=== PATIENT | male | born 2000 | race Caucasian/White ===

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

== ENCOUNTER 2022-06-23 17:07 | Inpatient (IN) | payer BC, OTHER ==
[2022-06-23] MEDS ORDERED: KETOROLAC 15 MG/ML 1 ML VIAL IVP STA (17:39)
[2022-06-23] MEDS ORDERED: ONDANSETRON 4 MG/2 ML VIAL IVP STA (17:39)
[2022-06-23] MEDS ORDERED: SODIUM CHLORIDE 0.9% 2,000 ML IV STA (17:39)
[2022-06-23] MEDS ORDERED: DEXAMETHASONE SOD PHOSPHATE 10 MG/ML 1 ML VIAL IVP STA (18:20)
--- NOTE | 2022-06-23 18:20 | ED ---
General Adult HPI - General Chief complaint: Skin/Abscess/Foreign Body Stated complaint: abscess Time Seen by Provider: 06/23/22 17:32 Source: patient Mode of arrival: ambulatory Limitations: no limitations - History of Present Illness Initial comments: Patient is a 21-year-old male who presents to the emergency department for possible neck abscess. Patient noticed it 2 days ago and has been increasing in size and tenderness. He does not have history of abscess. It was preceded by right ear pain. Patient reports significant pain when swallowing. He reports numerous episodes of nausea and vomiting today with headache. No fever or chills. He denies drooling, trismus, issues with breathing. No recent sick contacts. Patient presented to urgent care today he was sent to emergency department for evaluation. - Related Data Home Medications Medication Instructions Recorded Confirmed No Known Home Medications 07/07/14 06/23/22 Allergies Allergy/AdvReac Type Severity Reaction Status Date / Time Penicillins Allergy Rash/Hives Verified 06/23/22 17:45 Review of Systems ROS Statement: Those systems with pertinent positive or pertinent negative responses have been documented in the HPI. ROS Other: All systems not noted in ROS Statement are negative. Past Medical History Past Medical History: No Reported History History of Any Multi-Drug Resistant Organisms: None Reported Past Surgical History: Tonsillectomy Past Psychological History: No Psychological Hx Reported Smoking Status: Current every day smoker Past Alcohol Use History: None Reported Past Drug Use History: Marijuana General Exam Limitations: no limitations General appearance: alert, in no apparent distress Head exam: Present: atraumatic, normocephalic, normal inspection Eye exam: Present: normal appearance, PERRL, EOMI. Absent: scleral icterus, conjunctival injection, periorbital swelling ENT exam: Present: normal oropharynx (posterior pharynx and tonsils erythematous with exudate. no significant swelling ). Absent: TM's normal bilaterally (right acute otitis media) Neck exam: Present: tenderness, full ROM, lymphadenopathy, other (erythema with minimal flunctance to right middle neck and submandibular region. no submental or sublingular swelling). Absent: normal inspection, meningismus Respiratory exam: Present: normal lung sounds bilaterally. Absent: respiratory distress, wheezes, rales, rhonchi, stridor Cardiovascular Exam: Present: normal rhythm, tachycardia, normal heart sounds. Absent: regular rate, systolic murmur, diastolic murmur, rubs, gallop, clicks Neurological exam: Present: alert, oriented X3, CN II-XII intact Psychiatric exam: Present: normal affect, normal mood Skin exam: Present: warm, dry, intact, normal color. Absent: rash Course Vital Signs 06/23/22 06/23/22 17:21 18:50 Temperature 98.9 F Pulse Rate 119 H 98 Respiratory 20 18 Rate Blood Pressure 128/85 127/81 O2 Sat by Pulse 99 98 Oximetry Medical Decision Making - Medical Decision Making Was pt. sent in by a medical professional or institution (, PA, [facility], urgent care, hospital, or half-way...) When possible be specific @ -No Did you speak to anyone other than the patient for history (EMS, parent, family, police, friend...)? What history was obtained from this source @ -No Did you review nursing and triage notes (agree or disagree)? Why? @ -I reviewed and agree with nursing and triage notes Were old charts reviewed (outside hosp., previous admission, EMS record, old EKG, old radiological studies, urgent care reports/EKG's, half-way records)? Report findings @ -No old charts were reviewed Differential Diagnosis (chest pain, altered mental status, abdominal pain women, abdominal pain men, vaginal bleeding, weakness, fever, dyspnea, syncope, head ache, dizziness, GI bleed, back pain, seizure, CVA, palpatations, mental health)? @ -abscess, strep throat, cellulitis-this is not an all inclusive list EKG interpreted by me (3pts min.). @ -As above X-rays interpreted by me (1pt min.). @ -None done CT interpreted by me (1pt min.). @ -CT of the neck and chest with contrast shows subcutaneous edema and swelling in the right-sided anterior neck and submandibular region consistent with cellulitis and phlegmon. No drainable fluid collection. No focal boned instruction. Mild cervical lymphadenopathy U/S interpreted by me (1pt. min.). @ -None done What testing was considered but not performed or refused? (CT, X-rays, U/S, labs)? Why? @ -None What meds were considered but not given or refused? Why? @ -None Did you discuss the management of the patient with other professionals (professionals i.e. , PA, [facility], lab, RT, psych nurse, socially responsible investment adviser, rivet maker, teacher, special loan officer, case operator)? Give summary @ -No Was smoking cessation discussed for >3mins.? @ -No Was critical care preformed (if so, how long)? @ -No Were there social determinants of health that impacted care today? How? (Homelessness, low income, unemployed, alcoholism, drug addiction, trans portation, low edu. Level, literacy, decrease access to med. care, shelter, rehab)? @ -No Was there de-escalation of care discussed even if they declined (Discuss DNR or withdrawal of care, Hospice)? DNR status @ -No What co-morbidities impacted this encounter? (DM, HTN, Smoking, COPD, CAD, Cancer, CVA, ARF, Chemo, Hep., AIDS, mental health diagnosis, sleep apnea, morbid obesity)? @ -[None] Was patient admitted / discharged? Hospital course, mention meds given and route, prescriptions, significant lab abnormalities, going to OR and other pertinent info. @ -Patient presenting for possible abscess of his neck.Patient has swelling to the right anterior neck and submandibular region. There is no concern for James angina. Patient has been vomiting he is tachycardic at 119. Afebrile. Blood cultures obtained. IV fluids, antibiotics, pain, nausea medications started. There is leukocytosis at 23.5. There is lactic acidosis at 2.5 likely related to infection. Strep is detected. CT shows cellulitis and phlegmon of the right anterior neck and submandibular region. There is no drainable abscess. Sepsis diagnosis made at 19:29. Case discussed with Heidi Resendiz patient is admitted with ID and ENT on consult. Patient admitted in stable condition. Undiagnosed new problem with uncertain prognosis? @ -[No] Drug Therapy requiring intensive monitoring for toxicity (Heparin, Nitro, Insulin, Cardizem)? @ -[No] Were any procedures done? @ -[No] Diagnosis/symptom? @ -sepsis Acute, or Chronic, or Acute on Chronic? @ acute Uncomplicated (without systemic symptoms) or Complicated (systemic symptoms)? @ -complicated Side effects of treatment? @ -[No] Exacerbation, Progression, or Severe Exacerbation? @ -[No] Poses a threat to life or bodily function? How? (Chest pain, USA, OR, pneumonia, PE, COPD, DKA, ARF, appy, cholecystitis, CVA, Diverticulitis, Homicidal, Suicidal, threat to staff... and all critical care pts) @ -yes Dr. Soria is my attending - Lab Data Result diagrams: 06/23/22 17:55 06/23/22 17:55 Lab Results 06/23/22 06/23/22 06/23/22 Range/Units 17:55 17:55 17:55 WBC 23.5 H (3.8-10.6) k/uL RBC 5.76 (4.30-5.90) m/uL Hgb 17.6 H (13.0-17.5) gm/dL Hct 48.1 (39.0-53.0) % MCV 83.5 (80.0-100.0) fL MCH 30.6 (25.0-35.0) pg MCHC 36.6 (31.0-37.0) g/dL RDW 12.5 (11.5-15.5) % Plt Count 188 (150-450) k/uL MPV 8.7 Neutrophils % 95 % Lymphocytes % 1 % Monocytes % 3 % Eosinophils % 1 % Basophils % 0 % Neutrophils # 22.3 H (1.3-7.7) k/uL Lymphocytes # 0.3 L (1.0-4.8) k/uL Monocytes # 0.6 (0-1.0) k/uL Eosinophils # 0.1 (0-0.7) k/uL Basophils # 0.0 (0-0.2) k/uL Hyperchromasia Slight Sodium 133 L (137-145) mmol/L Potassium 4.0 (3.5-5.1) mmol/L Chloride 91 L (98-107) mmol/L Carbon Dioxide 30 (22-30) mmol/L Anion Gap 12 mmol/L BUN 26 H (9-20) mg/dL Creatinine 1.07 (0.66-1.25) mg/dL Est GFR (CKD-EPI)AfAm >90 (>60 ml/min/1.73 sqM) Est GFR (CKD-EPI)NonAf >90 (>60 ml/min/1.73 sqM) Glucose 149 H (74-99) mg/dL Plasma Lactic Acid Ernesto 2.5 H* (0.7-2.0) mmol/L Calcium 9.5 (8.4-10.2) mg/dL Total Bilirubin 1.0 (0.2-1.3) mg/dL AST 27 (17-59) U/L ALT 23 (4-49) U/L Alkaline Phosphatase 108 (38-126) U/L Total Protein 7.6 (6.3-8.2) g/dL Albumin 4.6 (3.5-5.0) g/dL Group A Strep (PCR) (Not Detectd) 06/23/22 Range/Units 17:55 WBC (3.8-10.6) k/uL RBC (4.30-5.90) m/uL Hgb (13.0-17.5) gm/dL Hct (39.0-53.0) % MCV (80.0-100.0) fL MCH (25.0-35.0) pg MCHC (31.0-37.0) g/dL RDW (11.5-15.5) % Plt Count (150-450) k/uL MPV Neutrophils % % Lymphocytes % % Monocytes % % Eosinophils % % Basophils % % Neutrophils # (1.3-7.7) k/uL Lymphocytes # (1.0-4.8) k/uL Monocytes # (0-1.0) k/uL Eosinophils # (0-0.7) k/uL Basophils # (0-0.2) k/uL Hyperchromasia Sodium (137-145) mmol/L Potassium (3.5-5.1) mmol/L Chloride (98-107) mmol/L Carbon Dioxide (22-30) mmol/L Anion Gap mmol/L BUN (9-20) mg/dL Creatinine (0.66-1.25) mg/dL Est GFR (CKD-EPI)AfAm (>60 ml/min/1.73 sqM) Est GFR (CKD-EPI)NonAf (>60 ml/min/1.73 sqM) Glucose (74-99) mg/dL Plasma Lactic Acid Ernesto (0.7-2.0) mmol/L Calcium (8.4-10.2) mg/dL Total Bilirubin (0.2-1.3) mg/dL AST (17-59) U/L ALT (4-49) U/L Alkaline Phosphatase (38-126) U/L Total Protein (6.3-8.2) g/dL Albumin (3.5-5.0) g/dL Group A Strep (PCR) DETECTED A (Not Detectd) Disposition Clinical Impression: Sepsis, Strep throat, Phlegmonous cellulitis Disposition: ADMITTED IP TO THIS [facility] Condition: Stable
[2022-06-23] MEDS ORDERED: CLINDAMYCIN 600 MG/50 ML-D5W 600 MG in DEXTROSE/WATER 1 50ML.BAG IVPB STA (18:22)
[2022-06-23 18:44] LABS: ALT 23 U/L (4-49); AST 27 U/L (17-59); African American GFR (CKD) >90 (>60 ml/min/1.73 sqM); Albumin 4.6 g/dL (3.5-5.0); Alkaline Phosphatase 108 U/L (38-126); Anion Gap 12 mmol/L; Blood Urea Nitrogen 26 mg/dL (9-20); Calcium 9.5 mg/dL (8.4-10.2); Carbon Dioxide 30 mmol/L (22-30); Chloride 91 mmol/L (98-107); Glucose 149 mg/dL (74-99); Non-African American GFR(CKD) >90 (>60 ml/min/1.73 sqM); Sodium 133 mmol/L (137-145); Total Protein 7.6 g/dL (6.3-8.2)
--- NOTE | 2022-06-23 18:47 | CT ---
EXAMINATION TYPE: CT neck chest w con DATE OF EXAM: 06/23/2022 COMPARISON: None HISTORY: Abscess in throat x2 days. CT DLP: 507.3 mGycm Automated exposure control for dose reduction was used. CONTRAST: Performed with IV Contrast, patient injected with 100cc mL of Isovue 370. Images obtained from the top of the frontal sinuses to the thoracic inlet with the IV contrast. Thyroid gland is symmetric. There is arterial flow in the carotid arteries and vertebral arteries. Th ere is flow in the jugular veins. The trachea appears normal. Epiglottis is normal. The tonsils and adenoids appear normal. The tongue appears normal. Prevertebral soft tissues are inta ct. No evidence of a pharyngeal mass. The parotid glands are symmetric. Submandibular salivary glands are symmetric. There is subcutaneous edema on the anterior right side of the neck extending into the submandibular r egion. No drainable fluid collection. There is mild fat stranding around the right submandibular sali vary gland. There is multiple bilateral anterior and posterior triangle cervical lymph nodes. The lar gest measures 1.7 cm in the right anterior triangle adjacent to the jugular vein. There are also some enlarged bilateral submandibular lymph nodes that measure up to 11 mm. The mandibular ring is intact. Zygomatic arches appear normal. Maxilla is intact. Nasal bone is intac t. There is fairly normal aeration of the temporal bones. There is normal aeration of the epitympanic recess bilaterally. External auditory canals appear normal. The lungs are clear of infiltrate. No pleural effusion. No mediastinal adenopathy. There is normal br anching pattern of the great vessels off the aortic arch. Thoracic aorta is intact. No aneurysm or di ssection. There are no hilar masses. No pleural effusion. The upper abdominal soft tissues are intact . The thoracic spine is intact. Sternum is intact. No rib fracture. IMPRESSION: There is subcutaneous edema and swelling in the right side anterior neck and submandibular region con sistent with cellulitis and phlegmon. No drainable fluid collection. No focal bone destruction. Mild cervical lymphadenopathy. No significant abnormality within the chest.
[2022-06-23 18:58] LABS: Basophils % (A) 0 %; Eosinophils # (A) 0.1 k/uL (0-0.7); Eosinophils % (A) 1 %; HCT 48.1 % (39.0-53.0); HGB 17.6 gm/dL (13.0-17.5); Hyperchromasia Slight; Lymphocytes # (A) 0.3 k/uL (1.0-4.8); Lymphocytes % (A) 1 %; MCH 30.6 pg (25.0-35.0); MCHC 36.6 g/dL (31.0-37.0); MCV 83.5 fL (80.0-100.0); Mean Platelet Volume 8.7; Monocytes # (A) 0.6 k/uL (0-1.0); Monocytes % (A) 3 %; Neutrophils # (A) 22.3 k/uL (1.3-7.7); Neutrophils % (A) 95 %; Platelet Count 188 k/uL (150-450); RBC 5.76 m/uL (4.30-5.90); RDW 12.5 % (11.5-15.5); WBC 23.5 k/uL (3.8-10.6)
[2022-06-23] MEDS ORDERED: ONDANSETRON 4 MG/2 ML VIAL IVP PRN (19:49)
[2022-06-23] MEDS ORDERED: NALOXONE 0.4 MG/ML 1 ML VIAL IV PRN (19:49)
[2022-06-23] MEDS: SODIUM CHLORIDE 0.9% 1,000 ML IV SCH (20:13)
[2022-06-24] MEDS: KETOROLAC 15 MG/ML 1 ML VIAL IVP PRN ×3 (06:01→18:37)
[2022-06-24] MEDS: SODIUM CHLORIDE 0.9% 1,000 ML IV SCH ×3 (06:08→20:59)
[2022-06-24 12:42] LABS: HCT 39.3 % (39.0-53.0); MCH 30.3 pg (25.0-35.0); MCHC 34.8 g/dL (31.0-37.0); MCV 86.9 fL (80.0-100.0); Platelet Count 196 k/uL (150-450); RBC 4.53 m/uL (4.30-5.90); RDW 12.1 % (11.5-15.5)
[2022-06-24 12:47] LABS: African American GFR (CKD) >90 (>60 ml/min/1.73 sqM); Anion Gap 10 mmol/L; Blood Urea Nitrogen 19 mg/dL (9-20); Calcium 8.9 mg/dL (8.4-10.2); Carbon Dioxide 27 mmol/L (22-30); Chloride 102 mmol/L (98-107); Glucose 123 mg/dL (74-99); Non-African American GFR(CKD) >90 (>60 ml/min/1.73 sqM); Sodium 139 mmol/L (137-145)
[2022-06-24 12:48] LABS: HGB 13.7 gm/dL (13.0-17.5)
--- NOTE | 2022-06-24 13:12 | HP ---
HISTORY AND PHYSICAL CHIEF COMPLAINT: Neck swelling and possible neck abscess. HISTORY OF PRESENT ILLNESS: This is a 21-year-old gentleman with a past medical history of no significant medical issues, being followed by Dr. Wolff in the outpatient setting, was complaining of increasing tenderness and pain in the right side of the neck. The symptoms are preceded by right ear ache and difficulty swallowing also. There is no history of any fever, rigors, or chills. The patient has a history of tonsillectomy. PAST MEDICAL HISTORY: History of tonsillectomy. Rest of the history and rest of the chart are also noted. HOME MEDICATIONS: None. ALLERGIES: Penicillin. FAMILY HISTORY: No history of heart disease or strokes in the family. SOCIAL HISTORY: History of smoking. REVIEW OF SYSTEMS: Fourteen-point review of systems is negative as mentioned earlier. PHYSICAL EXAMINATION: VITAL SIGNS: Pulse is 85, blood pressure 113/70, respirations 16. HEENT: Conjunctivae are normal. NECK: Erythema and tenderness, especially in the right side more than the left. Some minimal tenderness also present. Minimal tonsillar enlargement also present. CARDIOVASCULAR: S1 and S2 muffled. RESPIRATORY: Clear to auscultation. ABDOMEN: Soft. NERVOUS SYSTEM: Nonfocal. LABORATORY DATA: Lactic acid is 2.1 and 3. WBC 22.5. ASSESSMENT: 1. Right-sided neck cellulitis and possible sepsis, present on admission. Possible right-sided neck phlegmon. 2. Hyponatremia. 3. Elevated lactic acid. 4. Group A Strep throat infection. 5. History of tonsillectomy. RECOMMENDATIONS: This is a 21-year-old gentleman admitted with group A Strep and multiple complications. We will initiate broad-spectrum IV antibiotics. Infectious Disease and ENT consultations. Symptomatic treatment. The patient is on ceftriaxone at this time, 2 g. We will continue to monitor. Prognosis is guarded because of multiple complex medical issues. The patient is not on any home medications. Further recommendations to follow. MMODL / IJN: [id number] /
[2022-06-24] MEDS: HEPARIN SODIUM,PORCINE/PF 5,000 UNIT/0.5 ML SYRINGE SQ SCH (20:54)
--- NOTE | 2022-06-24 21:06 | P.CONS ---
History of Present Illness - Reason for Consult Consult date: 06/24/22 Strept with cellulitis Requesting physician: Eulalia San - Chief Complaint Sore throat x few days - History of Present Illness Patient is a 21-year-old male with no significant past medical history did have a history of tonsillectomy presenting to the ER yesterday afternoon for evaluation of increasing tiredness increasing sore throat and concern for possible neck abscess pending the patient's history going on for about 2 days has been complaining of mostly sore throat and difficulty with swallowing did have episode of nausea and vomiting no abdominal pain no diarrhea no chest pain no shortness of breath or cough patient on presentation to the hospital was afebrile did have a low-grade fever of 99.3 at one-point patient not hypoxic or need for supplemental oxygen did have white count 23.5 with a left shift lactic acid was elevated kidney function was normal liver enzymes are normal patient did have a group A strep detected and blood cultures coming back positive with group B strep as well patient did have a CT of the neck and chest subcutaneous edema and swelling of the right side anterior neck and submandibular region consider cellulitis and phlegmon no drainable fluid collection patient did receive a dose of clindamycin in the ER infectious disease was consulted for further management of antibiotic therapy Review of Systems Positive point has been mentioned in the HPI rest of the systems are negative Past Medical History Past Medical History: No Reported History History of Any Multi-Drug Resistant Organisms: None Reported Past Surgical History: Tonsillectomy Past Anesthesia/Blood Transfusion Reactions: No Reported Reaction Past Psychological History: No Psychological Hx Reported Smoking Status: Current every day smoker Past Alcohol Use History: None Reported Past Drug Use History: Marijuana Medications and Allergies Home Medications Medication Instructions Recorded Confirmed Type cefUROXime axetiL [Ceftin] 500 mg PO BID 10 Days #20 tab 06/26/22 Rx Allergies Allergy/AdvReac Type Severity Reaction Status Date / Time Penicillins Allergy Rash/Hives Verified 06/23/22 17:45 Physical Exam Vitals: Vital Signs Temp Pulse Pulse Resp BP BP Pulse Ox 06/24/22 07:30 97.9 F 80 16 110/57 92 L 06/24/22 01:57 98.6 F 85 16 113/74 99 06/23/22 22:18 99.3 F 89 16 114/68 96 06/23/22 21:50 106 H 16 118/69 97 06/23/22 18:50 98 18 127/81 98 06/23/22 17:21 98.9 F 119 H 20 128/85 99 Intake and Output 06/23/22 06/24/22 06/24/22 22:59 06:59 14:59 Other: # Voids 1 Weight 63.503 kg GENERAL DESCRIPTION: Young male lying in bed, no distress. No tachypnea or accessory muscle of respiration use. HEENT: Shows Pallor , no scleral icterus. Oral mucous membrane is dry. pharyngeal erythema NECK: Trachea central, no thyromegaly. Anterior neck area did have slight swelling induration and redness LUNGS: Unlabored breathing. Clear to auscultation anteriorly. No wheeze or crackle. HEART: S1, S2, regular rate and rhythm. No loud murmur ABDOMEN: Soft, no tenderness , guarding or rigidity, no organomegaly EXTREMITIES: No edema of feet. SKIN: No rash, no masses palpable. NEUROLOGICAL: The patient is awake, alert, oriented x3, mood and affect normal. Results CBC & Chem 7: 06/26/22 04:49 06/26/22 04:49 Labs: Abnormal Lab Results - Last 24 Hours (Table) 06/23/22 06/23/22 06/23/22 Range/Units 17:55 17:55 17:55 WBC 23.5 H (3.8-10.6) k/uL Hgb 17.6 H (13.0-17.5) gm/dL Neutrophils # 22.3 H (1.3-7.7) k/uL Lymphocytes # 0.3 L (1.0-4.8) k/uL Sodium 133 L (137-145) mmol/L Chloride 91 L (98-107) mmol/L BUN 26 H (9-20) mg/dL Glucose 149 H (74-99) mg/dL Plasma Lactic Acid Ernesto 2.5 H* (0.7-2.0) mmol/L Group A Strep (PCR) (Not Detectd) 06/23/22 06/23/22 06/24/22 Range/Units 17:55 21:33 00:46 WBC (3.8-10.6) k/uL Hgb (13.0-17.5) gm/dL Neutrophils # (1.3-7.7) k/uL Lymphocytes # (1.0-4.8) k/uL Sodium (137-145) mmol/L Chloride (98-107) mmol/L BUN (9-20) mg/dL Glucose (74-99) mg/dL Plasma Lactic Acid Ernesto 2.1 H* 3.0 H* (0.7-2.0) mmol/L Group A Strep (PCR) DETECTED A (Not Detectd) Microbiology - Last 24 Hours (Table) 06/23/22 17:55 Blood Culture Gram Stain - Preliminary Blood 06/23/22 17:55 Blood Culture - Final Blood Assessment and Plan (1) Bacteremia Status: Acute Code(s): R78.81 - BACTEREMIA SNOMED Code(s): 1509689 (2) Sepsis Status: Acute Code(s): A41.9 - SEPSIS, UNSPECIFIED ORGANISM SNOMED Code(s): 26142668 (3) Strep throat Status: Acute Code(s): J02.0 - STREPTOCOCCAL PHARYNGITIS SNOMED Code(s): 52074075 Plan: 1patient presented to hospital with sepsis in this patient who did have a elevated white count elevated lactic acid source is severe pharyngitis and phlegmon formation secondary to group A strep. 2patient with positive blood cultures secondary to streptococcal pharyngitis. 3penicillin allergy that would limit the number of antibiotics safe to use 4-patient was started on Rocephin 2 g daily and will see clinical response We will follow on clinical condition and cultures to further adjust medication if needed Thank you for this consultation we will follow the patient along with you Time with Patient: Greater than 30
[2022-06-25] MEDS: KETOROLAC 15 MG/ML 1 ML VIAL IVP PRN ×2 (02:22→20:10)
[2022-06-25] MEDS: SODIUM CHLORIDE 0.9% 1,000 ML IV SCH ×3 (08:51→16:05)
[2022-06-25 09:21] LABS: HCT 37.9 % (39.6-50.0); HGB 12.8 g/dL (13.0-17.0); MCH 29.4 pg (27.0-32.0); MCHC 33.8 g/dL (32.0-37.0); MCV 86.9 fL (80.0-97.0); Mean Platelet Volume 10.8 fL (9.5-12.2); NRBC Per 100 WBC 0 /100 WBCS (0.0-0.0); Platelet Count 212 X 10*3/uL (140-440); RBC 4.36 X 10*6/uL (4.40-5.60); RDW 12.2 % (11.5-14.5); WBC 13.31 X 10*3/uL (4.50-10.00)
[2022-06-25 09:22] LABS: African American GFR (CKD) 140.7 (60.0-200.0); Albumin 3.3 g/dL (3.8-4.9); Albumin/Globulin Ratio 1.66 (1.60-3.17); Anion Gap 7.2 mmol/L (10.00-18.00); BUN/Creat Ratio 19.46 Ratio (12.00-20.00); Blood Urea Nitrogen 17.3 mg/dL (9.0-27.0); C Reactive Protein 11.8 mg/dL (0.00-0.80); Calcium 8.5 mg/dL (8.7-10.3); Carbon Dioxide 26.9 mmol/L (20.0-27.5); Non-African American GFR(CKD) 121.4 (60.0-200.0); Potassium 3.7 mmol/L (3.5-5.5); Total Bilirubin 0.2 mg/dL (0.30-1.20); Total Protein 5.3 g/dL (6.2-8.2)
[2022-06-25 10:13] LABS: Basophils # (A) 0.05 X 10*3/uL (0.00-0.10); Basophils % (A) 0.4 %; Eosinophils # (A) 0.45 X 10*3/uL (0.04-0.35); Eosinophils % (A) 3.4 %; Immature Grans, Automated 0.5 %; Lymphocytes # (A) 1.62 X 10*3/uL (0.90-5.00); Lymphocytes % (A) 12.2 %; Monocytes # (A) 0.86 X 10*3/uL (0.20-1.00); Monocytes % (A) 6.5 %; Neutrophils # (A) 10.27 X 10*3/uL (1.80-7.70)
[2022-06-25] MEDS: HEPARIN SODIUM,PORCINE/PF 5,000 UNIT/0.5 ML SYRINGE SQ SCH ×2 (10:38→20:11)
--- NOTE | 2022-06-25 14:12 | P.PN ---
Subjective Progress Note Date: 06/25/22 Patient is a 21-year-old male with no significant past medical history did have a history of tonsillectomy presenting to the ER yesterday afternoon for evaluation of increasing tiredness increasing sore throat and concern for possible neck abscess pending the patient's history going on for about 2 days has been complaining of mostly sore throat and difficulty with swallowing did have episode of nausea and vomiting no abdominal pain no diarrhea no chest pain no shortness of breath or cough patient on presentation to the hospital was afebrile did have a low-grade fever of 99.3 at one-point patient not hypoxic or need for supplemental oxygen did have white count 23.5 with a left shift lactic acid was elevated kidney function was normal liver enzymes are normal patient did have a group A strep detected and blood cultures coming back positive with group B strep as well patient did have a CT of the neck and chest subcutaneous edema and swelling of the right side anterior neck and submandibular region consider cellulitis and phlegmon no drainable fluid collection patient did receive a dose of clindamycin in the ER infectious disease was consulted for further management of antibiotic therapy 06/25. Patient seen and examined. Mother at the bedside. Patient currently sleeping, not wanting to to be disturbed REVIEW OF SYSTEMS: Cannot be obtained as patient is sleeping PHYSICAL EXAMINATION: GENERAL: The patient is alert , not in any acute distress. Well developed, well nourished. HEENT: Pupils are round and equally reacting to light. EOMI. No scleral icterus. No conjunctival pallor. Normocephalic, atraumatic. No pharyngeal erythema. No thyromegaly. CARDIOVASCULAR: S1 and S2 present. No murmurs, rubs, or gallops. PULMONARY: Chest is clear to auscultation, no wheezing or crackles. ABDOMEN: Soft, nontender, nondistended, normoactive bowel sounds. No palpable organomegaly. MUSCULOSKELETAL: No joint swelling or deformity. EXTREMITIES: No cyanosis, clubbing, or pedal edema. NEUROLOGICAL: Gross neurological examination did not reveal any focal deficits. SKIN: No rashes. Assessment and plan Sepsis Streptococcal bacteremia Streptococcal Pharyngitis Neck cellulitis Hyponatremia Elevated lactic acid levels Plan; Monitor vital signs Monitor CBC Monitor CMP Continue telemetry monitoring Continue IV Rocephin Follow-up in ID recs Objective - Vital Signs Vital signs: Vital Signs Temp 98.1 F 06/25/22 07:56 Pulse 58 L 06/25/22 07:56 Resp 18 06/25/22 07:56 BP 132/90 06/25/22 07:56 Pulse Ox 99 06/25/22 07:56 FiO2 Intake & Output 06/24/22 06/25/22 06/25/22 18:59 06:59 18:59 Other: Voiding Method Toilet # Voids 3 2 - Labs CBC & Chem 7: 06/25/22 05:23 06/25/22 05:23 Labs: Abnormal Lab Results - Last 24 Hours (Table) 06/24/22 06/24/22 06/25/22 Range/Units 11:45 11:45 05:23 WBC 20.0 H 13.31 H (3.8-10.6) k/uL RBC 4.36 L (4.40-5.60) X 10*6/uL Hgb 12.8 L (13.0-17.0) g/dL Hct 37.9 L (39.6-50.0) % Immature Gran # 0.06 H (0.00-0.04) X 10*3/uL Neutrophils # 10.27 H (1.80-7.70) X 10*3/uL Eosinophils # 0.45 H (0.04-0.35) X 10*3/uL Anion Gap (10.00-18.00) mmol/L Glucose 123 H (74-99) mg/dL Calcium (8.7-10.3) mg/dL Total Bilirubin (0.30-1.20) mg/dL AST (14-35) U/L ALT (10-49) U/L C-Reactive Protein (0.00-0.80) mg/dL Total Protein (6.2-8.2) g/dL Albumin (3.8-4.9) g/dL 06/25/22 Range/Units 05:23 WBC (3.8-10.6) k/uL RBC (4.40-5.60) X 10*6/uL Hgb (13.0-17.0) g/dL Hct (39.6-50.0) % Immature Gran # (0.00-0.04) X 10*3/uL Neutrophils # (1.80-7.70) X 10*3/uL Eosinophils # (0.04-0.35) X 10*3/uL Anion Gap 7.20 L (10.00-18.00) mmol/L Glucose (74-99) mg/dL Calcium 8.5 L (8.7-10.3) mg/dL Total Bilirubin 0.20 L (0.30-1.20) mg/dL AST 79 H (14-35) U/L ALT 63 H (10-49) U/L C-Reactive Protein 11.80 H (0.00-0.80) mg/dL Total Protein 5.3 L (6.2-8.2) g/dL Albumin 3.3 L (3.8-4.9) g/dL Microbiology - Last 24 Hours (Table) 06/23/22 18:10 Blood Culture Gram Stain - Preliminary Blood Blood Culture - Preliminary Strep pyogenes (grp a) 06/23/22 17:55 Blood Culture Gram Stain - Preliminary Blood 06/23/22 18:10 Blood Culture - Final Blood 06/23/22 17:55 Blood Culture - Final Blood
--- NOTE | 2022-06-25 14:48 | P.PN ---
Subjective Progress Note Date: 06/25/22 Principal diagnosis: Streptococcal pharyngitis with bacteremia Patient is a 21-year-old male with no significant past medical history did have a history of tonsillectomy presenting to the ER for evaluation of increasing tiredness increasing sore throat and concern for possible neck abscess, patient did have CT of the neck with tissue subcutaneous edema and swelling on the right side of the neck cellulitis and phlegmon but no drainable abscess and the patient did have a positive group A strep throat as well as blood culture positive for Streptococcus. On today's evaluation that is 06/25/2022, the patient denies having any fever or any chills, the patient sore throat has decreased in intensity feeling better denies any difficulty swallowing no nausea no vomiting no diarrhea Objective - Vital Signs Vital signs: Vital Signs Temp 98.1 F 06/25/22 07:56 Pulse 58 L 06/25/22 07:56 Resp 18 06/25/22 07:56 BP 132/90 06/25/22 07:56 Pulse Ox 99 06/25/22 07:56 FiO2 Intake & Output 06/24/22 06/25/22 06/25/22 18:59 06:59 18:59 Other: Voiding Method Toilet # Voids 3 2 - Exam GENERAL DESCRIPTION: Young male lying in bed in no distress RESPIRATORY SYSTEM: Unlabored breathing , decreased breath sounds at bases HEART: S1 S2 regular rate and rhythm , ABDOMEN: Soft , no tenderness EXTREMITIES: No edema feet - Labs CBC & Chem 7: 06/25/22 05:23 06/25/22 05:23 Labs: Abnormal Lab Results - Last 24 Hours (Table) 06/24/22 06/24/22 06/25/22 Range/Units 11:45 11:45 05:23 WBC 20.0 H 13.31 H (3.8-10.6) k/uL RBC 4.36 L (4.40-5.60) X 10*6/uL Hgb 12.8 L (13.0-17.0) g/dL Hct 37.9 L (39.6-50.0) % Immature Gran # 0.06 H (0.00-0.04) X 10*3/uL Neutrophils # 10.27 H (1.80-7.70) X 10*3/uL Eosinophils # 0.45 H (0.04-0.35) X 10*3/uL Anion Gap (10.00-18.00) mmol/L Glucose 123 H (74-99) mg/dL Calcium (8.7-10.3) mg/dL Total Bilirubin (0.30-1.20) mg/dL AST (14-35) U/L ALT (10-49) U/L C-Reactive Protein (0.00-0.80) mg/dL Total Protein (6.2-8.2) g/dL Albumin (3.8-4.9) g/dL 06/25/22 Range/Units 05:23 WBC (3.8-10.6) k/uL RBC (4.40-5.60) X 10*6/uL Hgb (13.0-17.0) g/dL Hct (39.6-50.0) % Immature Gran # (0.00-0.04) X 10*3/uL Neutrophils # (1.80-7.70) X 10*3/uL Eosinophils # (0.04-0.35) X 10*3/uL Anion Gap 7.20 L (10.00-18.00) mmol/L Glucose (74-99) mg/dL Calcium 8.5 L (8.7-10.3) mg/dL Total Bilirubin 0.20 L (0.30-1.20) mg/dL AST 79 H (14-35) U/L ALT 63 H (10-49) U/L C-Reactive Protein 11.80 H (0.00-0.80) mg/dL Total Protein 5.3 L (6.2-8.2) g/dL Albumin 3.3 L (3.8-4.9) g/dL Microbiology - Last 24 Hours (Table) 06/23/22 18:10 Blood Culture Gram Stain - Preliminary Blood Blood Culture - Preliminary Strep pyogenes (grp a) 06/23/22 17:55 Blood Culture Gram Stain - Preliminary Blood 06/23/22 18:10 Blood Culture - Final Blood 06/23/22 17:55 Blood Culture - Final Blood Assessment and Plan (1) Bacteremia Current Visit: Yes Status: Acute Code(s): R78.81 - BACTEREMIA SNOMED Code(s): 3666501 (2) Phlegmonous cellulitis Current Visit: Yes Status: Acute Code(s): L02.91 - CUTANEOUS ABSCESS, UNSPECIFIED SNOMED Code(s): 408521572 (3) Strep throat Current Visit: Yes Status: Acute Code(s): J02.0 - STREPTOCOCCAL PHARYNGITIS SNOMED Code(s): 69887773 Plan: 1patient presented to hospital with sepsis in this patient who did have a elevated white count elevated lactic acid source is severe pharyngitis and phlegmon formation secondary to group A strep. 2patient with positive blood cultures secondary to streptococcal pharyngitis. 3penicillin allergy that would limit the number of antibiotics safe to use 4-patient seemed to have some clinical improvement on Rocephin 2 g daily, patient white count is 13,000 patient has been insisting on going home has been advised as to the hospital for another 24 hour for IV antibiotic therapy if the patient remains to be insisting on going home he will be able to finish therapy with oral Ceftin 10 days Time with Patient: Less than 30
[2022-06-26] MEDS: SODIUM CHLORIDE 0.9% 1,000 ML IV SCH (06:07)
[2022-06-26] MEDS: HEPARIN SODIUM,PORCINE/PF 5,000 UNIT/0.5 ML SYRINGE SQ SCH (08:22)
[2022-06-26 09:19] VITALS: BP 131/72; PULSE 68; RESP 17; TEMP 98.1
[2022-06-26 09:20] LABS: Basophils # (A) 0.05 X 10*3/uL (0.00-0.10); Basophils % (A) 0.5 %; Eosinophils # (A) 0.43 X 10*3/uL (0.04-0.35); Eosinophils % (A) 4.2 %; HCT 39.2 % (39.6-50.0); HGB 13.2 g/dL (13.0-17.0); Immature Grans, Automated 0.8 %; Lymphocytes # (A) 2.54 X 10*3/uL (0.90-5.00); Lymphocytes % (A) 24.6 %; MCH 29.7 pg (27.0-32.0); MCHC 33.7 g/dL (32.0-37.0); MCV 88.1 fL (80.0-97.0); Monocytes % (A) 8.7 %; NRBC Per 100 WBC 0 /100 WBCS (0.0-0.0); Neutrophils # (A) 6.33 X 10*3/uL (1.80-7.70); Neutrophils % (A) 61.2 %; Platelet Count 239 X 10*3/uL (140-440); RBC 4.45 X 10*6/uL (4.40-5.60); RDW 12.4 % (11.5-14.5); WBC 10.33 X 10*3/uL (4.50-10.00)
[2022-06-26 09:36] LABS: ALT 65 U/L (10-49); AST 35 U/L (14-35); African American GFR (CKD) 127.7 (60.0-200.0); Albumin 3.2 g/dL (3.8-4.9); Albumin/Globulin Ratio 1.53 (1.60-3.17); Alkaline Phosphatase 92 U/L (41-126); Blood Urea Nitrogen 13.4 mg/dL (9.0-27.0); Calcium 8.7 mg/dL (8.7-10.3); Carbon Dioxide 27.5 mmol/L (20.0-27.5); Chloride 106 mmol/L (96-109); Globulin 2.1 g/dL (1.6-3.3); Glucose 94 mg/dL (70-110); Non-African American GFR(CKD) 110.2 (60.0-200.0); Potassium 3.7 mmol/L (3.5-5.5); Sodium 141 mmol/L (135-145); Total Bilirubin <0.15 mg/dL (0.30-1.20); Total Protein 5.3 g/dL (6.2-8.2)
--- NOTE | 2022-06-26 12:50 | P.DS ---
Providers Date of admission: 06/23/22 19:58 Expected date of discharge: 06/26/22 Attending physician: Elizabeth Miller Consults: 06/23/22 19:49 Consult Physician Routine Consulting Provider: Nic Telles Consult Reason/Comments: strep with cellulitis/phlegmon Do you want consulting provider notified?: Yes Consult Physician Routine Consulting Provider: Jesus Cody Consult Reason/Comments: strep with cellulitis/phlegmon, sepsis Do you want consulting provider notified?: Yes Primary care physician: Suni Wolff Hospital Course: Discharge diagnoses; Sepsis Streptococcal bacteremia Streptococcal Pharyngitis Neck cellulitis Hyponatremia Elevated lactic acid levels Hospital course; Patient is a 21-year-old male with no significant past medical history did have a history of tonsillectomy presenting to the ER yesterday afternoon for evaluation of increasing tiredness increasing sore throat and concern for possible neck abscess pending the patient's history going on for about 2 days has been complaining of mostly sore throat and difficulty with swallowing did have episode of nausea and vomiting no abdominal pain no diarrhea no chest pain no shortness of breath or cough patient on presentation to the hospital was afebrile did have a low-grade fever of 99.3 at one-point patient not hypoxic or need for supplemental oxygen did have white count 23.5 with a left shift lactic acid was elevated kidney function was normal liver enzymes are normal patient did have a group A strep detected and blood cultures coming back positive with group B strep as well patient did have a CT of the neck and chest subcutaneous edema and swelling of the right side anterior neck and submandibular region consider cellulitis and phlegmon no drainable fluid collection patient did receive a dose of clindamycin in the ER infectious disease was consulted for further management of antibiotic therapy 06/25. Patient seen and examined. Mother at the bedside. Patient currently sleeping, not wanting to to be disturbed 06/26. Patient seen and examined. Patient keen to go home today. Discuss with ID, recommend discharging patient on oral Ceftin for 10 days. PHYSICAL EXAMINATION: GENERAL: The patient is alert and oriented x3, not in any acute distress. Well developed, well nourished. HEENT: Pupils are round and equally reacting to light. EOMI. No scleral icterus. No conjunctival pallor. Normocephalic, atraumatic. No pharyngeal erythema. No thyromegaly. CARDIOVASCULAR: S1 and S2 present. No murmurs, rubs, or gallops. PULMONARY: Chest is clear to auscultation, no wheezing or crackles. ABDOMEN: Soft, nontender, nondistended, normoactive bowel sounds. No palpable organomegaly. MUSCULOSKELETAL: No joint swelling or deformity. EXTREMITIES: No cyanosis, clubbing, or pedal edema. NEUROLOGICAL: Gross neurological examination did not reveal any focal deficits. SKIN: No rashes. Patient Condition at Discharge: Stable Plan - Discharge Summary Discharge Rx Participant: No New Discharge Prescriptions: New cefUROXime axetiL [Ceftin] 500 mg PO BID 10 Days #20 tab Discharge Medication List cefUROXime axetiL [Ceftin] 500 mg PO BID 10 Days #20 tab 06/26/22 [Rx] Follow up Appointment(s)/Referral(s): Suni Wolff MD [Primary Care Provider] - 1-2 days
--- NOTE | 2022-06-26 23:10 | P.PN ---
Subjective Progress Note Date: 06/26/22 Principal diagnosis: Streptococcal pharyngitis with bacteremia Patient is a 21-year-old male with no significant past medical history did have a history of tonsillectomy presenting to the ER for evaluation of increasing tiredness increasing sore throat and concern for possible neck abscess, patient did have CT of the neck with tissue subcutaneous edema and swelling on the right side of the neck cellulitis and phlegmon but no drainable abscess and the patient did have a positive group A strep throat as well as blood culture positive for Streptococcus. On today's evaluation that is 06/26/2022, the patient remains to be afebrile, the patient sore throat as well as pain to the right anterior neck area has decreased in intensity, the patient feeling better denies any difficulty swallowing no nausea no vomiting no diarrhea, patient has been stable with home since yesterday Objective - Vital Signs Vital signs: Vital Signs Temp 98.1 F 06/26/22 08:00 Pulse 68 06/26/22 08:00 Resp 17 06/26/22 08:00 BP 131/72 06/26/22 08:00 Pulse Ox 98 06/26/22 08:00 FiO2 Intake & Output 06/25/22 06/26/22 06/26/22 18:59 06:59 18:59 Other: Voiding Method Toilet Toilet Toilet # Voids 3 2 - Exam GENERAL DESCRIPTION: Young male lying in bed in no distress HEENT: Anterior neck area did have some swelling and mild induration which has decreased per the patient RESPIRATORY SYSTEM: Unlabored breathing , decreased breath sounds at bases HEART: S1 S2 regular rate and rhythm , ABDOMEN: Soft , no tenderness EXTREMITIES: No edema feet - Labs CBC & Chem 7: 06/26/22 04:49 06/26/22 04:49 Labs: Abnormal Lab Results - Last 24 Hours (Table) 06/26/22 06/26/22 Range/Units 04:49 04:49 WBC 10.33 H (4.50-10.00) X 10*3/uL Hct 39.2 L (39.6-50.0) % Immature Gran # 0.08 H (0.00-0.04) X 10*3/uL Eosinophils # 0.43 H (0.04-0.35) X 10*3/uL Anion Gap 7.50 L (10.00-18.00) mmol/L Total Bilirubin <0.15 L (0.30-1.20) mg/dL ALT 65 H (10-49) U/L Total Protein 5.3 L (6.2-8.2) g/dL Albumin 3.2 L (3.8-4.9) g/dL Albumin/Globulin Ratio 1.53 L (1.60-3.17) g/dL Microbiology - Last 24 Hours (Table) 06/25/22 05:28 Blood Culture - Preliminary Blood No Growth after 24 hours 06/23/22 17:55 Blood Culture Gram Stain - Preliminary Blood Blood Culture - Preliminary Strep pyogenes (grp a) 06/23/22 18:10 Blood Culture Gram Stain - Preliminary Blood Blood Culture - Preliminary Strep pyogenes (grp a) 06/24/22 11:45 Blood Culture - Preliminary Blood No Growth after 24 hours Assessment and Plan (1) Bacteremia Status: Acute Code(s): R78.81 - BACTEREMIA SNOMED Code(s): 2144818 (2) Phlegmonous cellulitis Status: Acute Code(s): L02.91 - CUTANEOUS ABSCESS, UNSPECIFIED SNOMED Code(s): 248979836 (3) Strep throat Status: Acute Code(s): J02.0 - STREPTOCOCCAL PHARYNGITIS SNOMED Code(s): 25348984 Plan: 1patient presented to hospital with sepsis in this patient who did have a elevated white count elevated lactic acid source is severe pharyngitis and phlegmon formation secondary to group A strep. 2patient with positive blood cultures secondary to streptococcal pharyngitis. 3penicillin allergy that would limit the number of antibiotics safe to use 4-patient seemed to have some clinical improvement on Rocephin 2 g daily, and the patient white count has normalized patient has been insisting on going home prescription for Ceftin 500 mg twice a day 10 days has been sent to the pharmacy and patient has been instructed if any worsening of swelling redness pain or the fever comes back that he has to come back to the hospital Time with Patient: Less than 30
== END 2022-06-26 13:08 | disposition home or self-care (01) | DRG 872 ==
LOC: EC 17:07 → 4SSUR 19:58
PROVIDERS: ADMIT Hospitalist; ATTEND Hospitalist
DX: A40.0 Sepsis due to streptococcus, group A (principal); L03.221 Cellulitis of neck; E87.1 Hypo-osmolality and hyponatremia; J02.0 Streptococcal pharyngitis; Z28.310 Unvaccinated for COVID-19; H92.01 Otalgia, right ear; F17.200 Nicotine dependence, unspecified, uncomplicated; Z88.0 Allergy status to penicillin
CPT/HCPCS: 36415; 70491; 71260; 80048; 80053; 83605; 85025; 85027; 86140; 87040; 87077; 87186; 87651; 96361; 96365; 96375; 99285

== ENCOUNTER 2023-06-21 20:11 | Emergency (ER) | payer BC ==
[2023-06-21 20:35] VITALS: RESP 18; TEMP 98.6
--- NOTE | 2023-06-21 21:33 | ED ---
General Adult HPI - General Chief complaint: Recheck/Abnormal Lab/Rx Stated complaint: slight flu symptoms/covid test Time Seen by Provider: 06/21/23 20:31 Source: patient Mode of arrival: ambulatory Limitations: no limitations - History of Present Illness Initial comments: 22-year-old male presenting for COVID test. His girlfriend just tested positive for COVID and he also wanted to be tested. States that he has had some mild congestion and cough which she has attributed to allergies. When asked if he has any body aches or sore throat he says "no more than usual". No fevers. No shortness of breath or chest pain. No abdominal pain, nausea, vomiting, diarrhea. - Related Data Previous Rx's Medication Instructions Recorded cefUROXime axetiL [Ceftin] 500 mg PO BID 10 Days #20 tab 06/26/22 Allergies Allergy/AdvReac Type Severity Reaction Status Date / Time Penicillins Allergy Rash/Hives Verified 06/21/23 20:33 Review of Systems ROS Statement: Those systems with pertinent positive or pertinent negative responses have been documented in the HPI. ROS Other: All systems not noted in ROS Statement are negative. Past Medical History Past Medical History: No Reported History History of Any Multi-Drug Resistant Organisms: None Reported Past Surgical History: Tonsillectomy Past Anesthesia/Blood Transfusion Reactions: No Reported Reaction Past Psychological History: No Psychological Hx Reported Smoking Status: Current every day smoker Past Alcohol Use History: Rare Past Drug Use History: Marijuana General Exam Limitations: no limitations General appearance: alert, in no apparent distress Head exam: Present: atraumatic, normocephalic Eye exam: Present: normal appearance Neck exam: Present: normal inspection. Absent: meningismus Respiratory exam: Present: normal lung sounds bilaterally. Absent: respiratory distress, wheezes, rales, rhonchi, stridor Cardiovascular Exam: Present: regular rate, normal rhythm, normal heart sounds. Absent: systolic murmur, diastolic murmur, rubs, gallop, clicks Neurological exam: Present: alert, oriented X3 Psychiatric exam: Present: normal affect, normal mood Skin exam: Present: warm, dry Course Vital Signs 06/21/23 06/21/23 20:31 21:44 Temperature 98.6 F Pulse Rate 61 75 Respiratory 18 18 Rate Blood Pressure 118/72 120/78 O2 Sat by Pulse 99 98 Oximetry Medical Decision Making - Medical Decision Making Was pt. sent in by a medical professional or institution (CARLITO Irvin, [employer] ATTENDANT, urgent care, hospital, or penitentiary...) When possible be specific @ -No Did you speak to anyone other than the patient for history (EMS, parent, family, police, friend...)? What history was obtained from this source @ -No Did you review nursing and triage notes (agree or disagree)? Why? @ -I reviewed and agree with nursing and triage notes Were old charts reviewed (outside hosp., previous admission, EMS record, old EKG, old radiological studies, urgent care reports/EKG's, penitentiary records)? Report findings @ -No old charts were reviewed Differential Diagnosis (chest pain, altered mental status, abdominal pain women, abdominal pain men, vaginal bleeding, weakness, fever, dyspnea, syncope, headache, dizziness, GI bleed, back pain, seizure, CVA, palpatations, mental health, musculoskeletal)? @ -Differential includes influenza, RSV, COVID, other viral URI, allergies, this is not an all-inclusive list EKG interpreted by me (3pts min.). @ -As above X-rays interpreted by me (1pt min.). @ -None done CT interpreted by me (1pt min.). @ -None done U/S interpreted by me (1pt. min.). @ -None done What testing was considered but not performed or refused? (CT, X-rays, U/S, labs)? Why? @ -None What meds were considered but not given or refused? Why? @ -None Did you discuss the management of the patient with other professionals (professionals i.e. CARLITO Irvin, [employer] ATTENDANT, lab, RT, psych nurse, social service liaison, refrigerating technician, teacher, interface control officer, outpatient case manager)? Give summary @ -No Was smoking cessation discussed for >3mins.? @ -No Was critical care preformed (if so, how long)? @ -No Were there social determinants of health that impacted care today? How? (Homelessness, low income, unemployed, alcoholism, drug addiction, transportation, low edu. Level, literacy, decrease access to med. care, residential, rehab)? @ -No Was there de-escalation of care discussed even if they declined (Discuss DNR or withdrawal of care, Hospice)? DNR status @ -No What co-morbidities impacted this encounter? (DM, HTN, Smoking, COPD, CAD, Cancer, CVA, ARF, Chemo, Hep., AIDS, mental health diagnosis, sleep apnea, morbid obesity)? @ -None Was patient admitted / discharged? Hospital course, mention meds given and route, prescriptions, significant lab abnormalities, going to OR and other pertinent info. @ -22-year-old male presenting for COVID testing. His girlfriend just tested positive therefore he wanted to be tested. Physical exam is benign. He is negative for influenza, RSV, and COVID. Discharged home. I discussed this case with my attending Dr. Dsouza Undiagnosed new problem with uncertain prognosis? @ -No Drug Therapy requiring intensive monitoring for toxicity (Heparin, Nitro, Insulin, Cardizem)? @ -No Were any procedures done? @ -No Diagnosis/symptom? @ -Encounter for COVID testing Acute, or Chronic, or Acute on Chronic? @ -Acute Uncomplicated (without systemic symptoms) or Complicated (systemic symptoms)? @ -Uncomplicated Side effects of treatment? @ -No Exacerbation, Progression, or Severe Exacerbation? @ -No Poses a threat to life or bodily function? How? (Chest pain, [place], [place], pneumonia, PE, COPD, DKA, ARF, appy, cholecystitis, CVA, Diverticulitis, Homicidal, Suicidal, threat to staff... and all critical care pts) @ -No - Lab Data Lab Results 06/21/23 Range/Units 20:38 Influenza Type A (PCR) Not Detected (Not Detectd) Influenza Type B (PCR) Not Detected (Not Detectd) RSV (PCR) Not Detected (Not Detectd) SARS-CoV-2 (PCR) Not Detected (Not Detectd) Disposition Clinical Impression: Encounter for laboratory testing for COVID-19 virus Disposition: HOME SELF-CARE Condition: Good Additional Instructions: Follow-up with PCP. Report back to ER with any new or worsening symptoms. Is patient prescribed a controlled substance at d/c from ED?: No Referrals: Suni Wolff MD [Primary Care Provider] - 1-2 days Time of Disposition: 21:33
[2023-06-21 22:14] VITALS: BP 120/78; PULSE 75
== END 2023-06-21 21:45 | disposition home or self-care (01) ==
LOC: EC 20:11
DX: J10.1 Influenza due to other identified influenza virus with other respiratory manifestations (principal); F17.200 Nicotine dependence, unspecified, uncomplicated; Z11.52 Encounter for screening for COVID-19; Z88.0 Allergy status to penicillin
CPT/HCPCS: 87636; 99283

== ENCOUNTER 2023-06-23 23:43 | Emergency (ER) | payer BC ==
--- NOTE | 2023-06-24 00:52 | XR ---
EXAMINATION TYPE: XR chest 2V DATE OF EXAM: 06/24/2023 COMPARISON: CT neck and chest June 23, 2022 HISTORY: Fever and cough TECHNIQUE: Frontal and lateral views of the chest are obtained. FINDINGS: There is no focal air space opacity, pleural effusion, or pneumothorax seen. The cardiac silhouette size is stable and within normal limits. The osseous structures are intact. IMPRESSION: No acute cardiopulmonary process.
[2023-06-24 00:56] VITALS: TEMP 100.2
--- NOTE | 2023-06-24 01:55 | ED ---
General Adult HPI - General Chief complaint: Upper Respiratory Infection Stated complaint: back pain NVD chills Time Seen by Provider: 06/24/23 01:11 Source: patient Mode of arrival: ambulatory Limitations: no limitations - History of Present Illness Initial comments: 22-year-old male otherwise healthy presenting to the ED with a chief complaint of URI symptoms. Patient states today onset of myalgias, fever, chills, nausea, vomiting, cough, congestion. No chest pain or shortness of breath. Patient notes exposure to his girlfriend who also tested positive for COVID. No other complaints at this time. - Related Data Previous Rx's Medication Instructions Recorded cefUROXime axetiL [Ceftin] 500 mg PO BID 10 Days #20 tab 06/26/22 Ondansetron Odt [Zofran Odt] 4 mg PO Q8HR PRN #10 tab 06/24/23 Allergies Allergy/AdvReac Type Severity Reaction Status Date / Time Penicillins Allergy Rash/Hives Verified 06/21/23 20:33 Review of Systems ROS Statement: Those systems with pertinent positive or pertinent negative responses have been documented in the HPI. ROS Other: All systems not noted in ROS Statement are negative. Past Medical History Past Medical History: No Reported History History of Any Multi-Drug Resistant Organisms: None Reported Past Surgical History: Tonsillectomy Past Anesthesia/Blood Transfusion Reactions: No Reported Reaction Past Psychological History: No Psychological Hx Reported Smoking Status: Current every day smoker Past Alcohol Use History: Rare Past Drug Use History: Marijuana General Exam Limitations: no limitations General appearance: alert, in no apparent distress Eye exam: Present: normal appearance Neck exam: Present: normal inspection Respiratory exam: Present: normal lung sounds bilaterally Cardiovascular Exam: Present: regular rate, normal rhythm GI/Abdominal exam: Present: soft, normal bowel sounds. Absent: distended, tenderness, guarding, rebound, rigid Neurological exam: Present: alert, oriented X3 Skin exam: Present: warm, dry Course Vital Signs 06/24/23 06/24/23 00:17 01:17 Temperature 100.2 F H Pulse Rate 110 H 87 Respiratory 22 20 Rate Blood Pressure 136/63 136/67 O2 Sat by Pulse 99 98 Oximetry Medical Decision Making - Medical Decision Making Was pt. sent in by a medical professional or institution (, PA, PURCHASING CLERK, urgent care, hospital, or detention...) When possible be specific @ -No Did you speak to anyone other than the patient for history (EMS, parent, family, police, friend...)? What history was obtained from this source @ -No Did you review nursing and triage notes (agree or disagree)? Why? @ -I reviewed and agree with nursing and triage notes Were old charts reviewed (outside hosp., previous admission, EMS record, old EKG, old radiological studies, urgent care reports/EKG's, detention records)? Report findings @ -No old charts were reviewed Differential Diagnosis (chest pain, altered mental status, abdominal pain women, abdominal pain men, vaginal bleeding, weakness, fever, dyspnea, syncope, headache, dizziness, GI bleed, back pain, seizure, CVA, palpatations, mental health, musculoskeletal)? @ -Differential Dyspnea: Coronary syndrome, arrhythmia, tamponade, asthma, COPD, pulmonary embolism, pneumonia, pneumothorax, pulmonary effusion, anaphylaxis, diabetic ketoacidosis, flailed chest, pulmonary contusion, diaphragmatic rupture, anemia, neuromuscular, this is not meant to be an all-inclusive list. EKG interpreted by me (3pts min.). @ -As above X-rays interpreted by me (1pt min.). @ -Chest x-ray interpreted by me which revealed no evidence of acute finding. CT interpreted by me (1pt min.). @ -None done U/S interpreted by me (1pt. min.). @ -None done What testing was considered but not performed or refused? (CT, X-rays, U/S, labs)? Why? @ -None What meds were considered but not given or refused? Why? @ -None Did you discuss the management of the patient with other professionals (professionals i.e. , PA, PURCHASING CLERK, lab, RT, psych nurse, social science professor, digital account coordinator, teacher, founder and chief technical officer, immigration case worker)? Give summary @ -No Was smoking cessation discussed for >3mins.? @ -No Was critical care preformed (if so, how long)? @ -No Were there social determinants of health that impacted care today? How? (Homelessness, low income, unemployed, alcoholism, drug addiction, transportation, low edu. Level, literacy, decrease access to med. care, halfway, rehab)? @ -No Was there de-escalation of care discussed even if they declined (Discuss DNR or withdrawal of care, Hospice)? DNR status @ -No What co-morbidities impacted this encounter? (DM, HTN, Smoking, COPD, CAD, Cancer, CVA, ARF, Chemo, Hep., AIDS, mental health diagnosis, sleep apnea, morbid obesity)? @ -None Was patient admitted / discharged? Hospital course, mention meds given and route, prescriptions, significant lab abnormalities, going to OR and other pertinent info. @ -Discharge 22-year-old male presenting to the ED with 1 day history of URI symptoms including congestion, cough, fever, chills, myalgias. Serology panel positive for COVID. Discharged home in stable condition with prescription for Zofran. Reported good supplies of Motrin and Tylenol at home. Advised supportive care. Provided acetaminophen and Toradol here in the ED. Discussed return precautions with patient and girlfriend who verbalized agreement. Undiagnosed new problem with uncertain prognosis? @ -No Drug Therapy requiring intensive monitoring for toxicity (Heparin, Nitro, Insulin, Cardizem)? @ -No Were any procedures done? @ -No Diagnosis/symptom? @ -COVID Acute, or Chronic, or Acute on Chronic? @ -Acute Uncomplicated (without systemic symptoms) or Complicated (systemic symptoms)? @ -Uncomplicated Side effects of treatment? @ -No Exacerbation, Progression, or Severe Exacerbation? @ -No Poses a threat to life or bodily function? How? (Chest pain, [place], [place], pneumonia, PE, COPD, DKA, ARF, appy, cholecystitis, CVA, Diverticulitis, Homicidal, Suicidal, threat to staff... and all critical care pts) @ -No - Lab Data Lab Results 06/24/23 Range/Units 00:21 Influenza Type A (PCR) Not Detected (Not Detectd) Influenza Type B (PCR) Not Detected (Not Detectd) RSV (PCR) Not Detected (Not Detectd) SARS-CoV-2 (PCR) Detected A (Not Detectd) Disposition Clinical Impression: COVID Disposition: HOME SELF-CARE Condition: Good Instructions (If sedation given, give patient instructions): Upper Respiratory Infection (ED) Additional Instructions: Please return to the Emergency Department if symptoms worsen or any other concerns. Please follow-up with your primary care provider. Prescriptions: Ondansetron Odt [Zofran Odt] 4 mg PO Q8HR PRN #10 tab PRN Reason: Nausea Is patient prescribed a controlled substance at d/c from ED?: No Referrals: Suni Wolff MD [Primary Care Provider] - 1-2 days Time of Disposition: 01:58
[2023-06-24] MEDS: ACETAMINOPHEN TAB 500 MG TAB PO STA (02:02)
[2023-06-24] MEDS: KETOROLAC 15 MG/ML 1 ML VIAL IM STA (02:02)
[2023-06-24] MEDS: ONDANSETRON 4 MG ODT STARTER PACK 2 TAB BTL PO STA (02:17)
[2023-06-24 02:53] VITALS: BP 122/66; PULSE 98; RESP 18
== END 2023-06-24 02:20 | disposition home or self-care (01) ==
LOC: EC 23:43
DX: U07.1 COVID-19 (principal); F17.200 Nicotine dependence, unspecified, uncomplicated; F12.90 Cannabis use, unspecified, uncomplicated; Z88.0 Allergy status to penicillin
CPT/HCPCS: 87636; 71046; 99284; 96372; J1885; S0119